=== PATIENT | female | born 1995 | race Caucasian/White ===

== ENCOUNTER → 2022-01-17 | Outpatient (CLI) | payer BC ==
--- NOTE | 2022-01-17 08:40 | USB ---
Reason for Exam: Clinical finding. Technique: Method: Whole Breast Handheld. Findings: The whole breast of the left breast, the axilla of the left breast and the retroareolar of the left breast were scanned. A complete US of all four quadrants of the breast and retro-areolar region and axilla were reviewed. No solid or cystic masses are identified in the area of patient's abnormality. Overall Assessment: Benign, BI-RAD 2 Management: Screening Mammogram of both breasts at age 38. Follow-up with ordering provider for lump. A clinical breast exam by your physician is recommended on an annual basis and results should be correlated with mammographic findings. This exam should not preclude additional follow-up of suspicious palpable abnormalities. Results were given to the patient verbally at the time of exam. Electronically signed and approved by: Easton Arce DO
== END | disposition home or self-care (01) ==
LOC: RADUSWWP 08:03
PROVIDERS: ATTEND Obstetrics & Gynecology Obstetrics
DX: N63.20 Unspecified lump in the left breast, unspecified quadrant (principal)